=== PATIENT | male | born 1990 | race Hispanic/Latino ===

== ENCOUNTER 2024-12-31 07:24 | Emergency (ER) | payer SELFPAY ==
[~2024-12-31] VITALS: Ht 170.2 cm; Wt 89.8 kg
[2024-12-31 07:54] LABS: APPEARANCE,URINE CLOUDY (CLEAR); BILIRUBIN,URINE NEGATIVE (NEGATIVE); COLOR,URINE YELLOW (YELLOW); GLUCOSE, URINE (UA) NEGATIVE (NEGATIVE); KETONES,URINE NEGATIVE (NEGATIVE); LEUKOCYTE ESTERASE ,URINE NEGATIVE Leu/uL (NEGATIVE); NITRATE,URINE NEGATIVE (NEGATIVE); OCCULT BLOOD,URINE NEGATIVE (NEGATIVE); PROTEIN,URINE 10 mg/dL (NEGATIVE)
[2024-12-31 07:55] LABS: ADD UA MICROSCOPIC YES
--- NOTE | 2024-12-31 08:01 | ERN ---
General Chief Complaint: Flank Pain Stated Complaint: LEFT FLANK PAIN Time Seen by MD: 07:28 History of Present Illness Initial Comments 34-year-old male, denies medical conditions, presents for left lower back pain, body aches, mild dysuria. Patient reports about 36 hours ago he developed fever. He had a bit of a sore throat and body aches. He reports lower back pain now. He reports some mild dysuria. No vomiting. No hematuria. He went to a PCP yesterday and received I antibiotic injection and a prescription for azithromycin. Denies medical or surgical history. Neurovascularly intact. Allergies: Coded Allergies: No Known Drug Allergies (Unverified Allergy, Unknown, 12/31/24) Past Medical History Past Medical History: No Pertinent History Past Surgical History: Appendectomy ROS Dictation CONSTITUTIONAL: No chills, no fever, no weakness, no diaphoresis, no malaise. HEAD/FACE: No signs of trauma. EENT: No eye pain, no blurred vision, no tearing, no double vision, no ear pain, no ear discharge, no nose pain, no nasal congestion, no throat pain, no throat swelling, no mouth pain. RESPIRATORY: No cough, no orthopnea, no SOB, no stridor, no wheezing. CARDIOVASCULAR: No chest pain, no edema, no palpitations, no syncope. GASTROINTESTINAL/ABDOMINAL: No abdominal pain, no constipation, no diarrhea, no nausea, no vomiting. GENITOURINARY: No abnormal discharge, no dysuria, no frequent urination, no hematuria. No complaints of pain in the genitals. MUSCULOSKELETAL: Left lower back pain/left flank pain INTEGUMENTARY: No change in color, no change in hair/nails, no dryness, no lesion, no lumps, no rash. NEUROLOGICAL/PSYCH: No anxiety, not depressed, no emotional problem, no headache, no numbness, no pre-existing deficit, no history of seizures, no tremors, no weakness. HEMATOLOGIC/LYMPHATIC: Not anemic, no history of blood clots, no apparent bleeding, no bruising, glands not swollen. All Systems Negative, Except as Noted. Physical Exam Physical Exam Dictation VITAL SIGNS: Reviewed. GENERAL APPEARANCE: Alert, oriented x3, no acute distress HEAD AND FACE: Non-traumatic. EYES: PERRL, pink conjunctivas, eyelid no trauma, anterior chamber clear. EARS: Pinnas intact and no signs of trauma or erythema. Ear canals clear and no discharge. TMs no erythema. NOSE: No discharge, no bleeding. OROPHARYNX: Mouth normal, teeth no caries, tongue pink. Pharynx clear, no erythema. Tonsils no exudates, no abscesses noted. Mucous membrane moist. NECK: Supple, non-tender, no thyromegaly, no masses, no JVD, no bruits. BREAST: Deferred. CHEST: No tenderness, no crepitus, no paradoxical movement, no retractions. LUNGS: Clear, well-ventilated, symmetric, no rales, no wheezing, no rhonchi, no stridor, good breath sounds bilaterally. HEART: Regular rate, regular rhythm, no murmur, no gallops. VASCULAR: No peripheral edema. ABDOMEN: Soft, positive bowel sounds, nondistended, no guarding, nontender, no rebound, no masses no hepatomegaly, no splenomegaly, no Adame's sign, no hernias. RECTAL: Deferred. GENITAL: Deferred. NEUROLOGICAL: Normal speech, gross motor function intact, gross sensory function intact. MUSCULOSKELETAL: Neck nontender, full range of motion, back nontender, full range of motion. EXTREMITIES: Nontender, full range of motion. SKIN: Color pink, dry, no turgor, no rash, no lacerations, no abrasions, no contusions. LYMPHATICS: Deferred. Results Laboratory and Microbiology Lab and Micro Result Laboratory Tests Test 12/31/24 07:35 12/31/24 08:00 Urine Color YELLOW (YELLOW) Urine Appearance CLOUDY (CLEAR) H Urine pH 7.0 (5.0-8.0) Urine Specific Deweese 1.027 (1.001-1.031) Urine Protein 10 mg/dL (NEGATIVE) H Urine Glucose (UA) NEGATIVE mg/dL (NEGATIVE) Urine Ketones NEGATIVE mg/dL (NEGATIVE) Urine Occult Blood NEGATIVE (NEGATIVE) Urine Nitrate NEGATIVE (NEGATIVE) Urine Bilirubin NEGATIVE mg/dL (NEGATIVE) Urine Urobilinogen 4.0 mg/dL (0.2-1.0) H Urine Leukocyte Esterase NEGATIVE Gilda/uL Urine RBC 2-5 /HPF (0-1) H Urine WBC 0-1 /HPF (0-1) Urine Amorphous Crystals (Auto) RARE /LPF (None Seen) Urine Bacteria RARE /HPF (None Seen) White Blood Count 8.1 K/uL (4.8-10.8) Red Blood Count 5.59 MIL/uL (4.50-6.20) Hemoglobin 17.6 g/dL (14.0-18.0) Hematocrit 50.7 % (42-54) Mean Corpuscular Volume 90.7 fL (79-99) Mean Corpuscular Hemoglobin 31.5 pg (27.0-33.0) Mean Corpuscular Hemoglobin Concent 34.7 g/dL (32.0-36.0) Red Cell Distribution Width 12.1 % (11.0-15.5) Platelet Count 253 K/uL (130-400) Mean Platelet Volume 8.7 fL (7.5-10.5) Immature Granulocyte % (Auto) 0.4 % (0-1) Neutrophils (%) (Auto) 60.9 % (40.0-77.0) Lymphocytes (%) (Auto) 20.8 % (21.0-51.0) L Monocytes (%) (Auto) 16.7 % (3.0-13.0) H Eosinophils (%) (Auto) 0.5 % (0.0-8.0) Basophils (%) (Auto) 0.7 % (0.0-5.0) Neutrophils # (Auto) 5.0 K/uL (1.8-7.7) Lymphocytes # (Auto) 1.7 K/uL (1.0-4.8) Monocytes # (Auto) 1.4 K/uL (0.1-1.0) H Eosinophils # (Auto) 0.04 K/uL (0.00-0.70) Basophils # (Auto) 0.06 K/uL (0.00-0.20) Absolute Immature Granulocyte (auto 0.03 K/uL (0-1) Nucleated Red Blood Cells 0.0 % (0.0-0.19) White Cell Morphology Comment See comments Sodium Level 137 mmol/L (136-145) Potassium Level 4.0 mmol/L (3.5-5.1) Chloride Level 103 mmol/L (101-111) Carbon Dioxide Level 30 mmol/L (21-32) Blood Urea Nitrogen 15 mg/dL (7-18) Creatinine 1.0 mg/dL (0.5-1.3) Glomerular Filtration Rate Calc 101 mL/min (>90) Random Glucose 99 mg/dL (70-105) Total Calcium 8.5 mg/dL (8.5-10.1) MDM CC: Flank pain Historian: Patient Comorbidities: Denies Vital signs: Mild tachycardia heart rate 103 otherwise unremarkable. Differential diagnosis: Kidney stone, UTI, viral illness, other. Labs (independently ordered and interpreted by me ): No leukocytosis, no anemia. CBC is normal. BMP normal. Urinalysis shows 2-[address] scan of the abdomen and pelvis without contrast ( independently interpreted by me): No acute kidney stones or major abnormalities. No surgical pathology. Treatment in the ER: 1 L normal saline, 15 mg IV Toradol. Re-evaluation. Patient reports improvement of symptoms. I have very low suspicion for any life threats. There was no signs of infection currently. No signs of kidney stones. He was neurovascularly intact and no signs of significant low back pain. He has no midline tenderness and no motor dysfunction. Has a generalized body aches, suspect he may have a viral syndrome. He is currently taking antibiotics already prescribed by his outpatient physician. We will recommend he continues with this and follows up as needed. We will recommend OTC medications for pain and discomfort. ED Course Orders Procedure Category Date Status Time Urinalysis Profile LAB 12/31/24 Complete 07:30 Cbc With Differential LAB 12/31/24 Complete 07:30 Basic Metabolic Panel LAB 12/31/24 Complete 07:30 Ketorolac PHA 12/31/24 Complete Tromethamine 15mg/Ml 08:00 0.9%Nacl 1000ml (Ns PHA 12/31/24 Complete 1000ml) 08:00 Ct Abdomen/Pelvis W/O CT 12/31/24 Resulted Contrast 07:55 Current Medications Medications (Trade) Dose Ordered Sig/Norberto Route PRN Reason Start Time Stop Time Status Last Admin Dose Admin Ketorolac Tromethamine (toRADol) 15 mg ONCE ONCE IV 12/31/24 08:00 12/31/24 08:01 DC 12/31/24 08:12 Sodium Chloride 1,000 ml @ 0 mls/hr ONCE ONCE IV 12/31/24 08:00 12/31/24 08:01 DC 12/31/24 08:11 Vital Signs Date Time Temp Pulse Resp B/P (MAP) Pulse Ox O2 Delivery O2 Flow Rate FiO2 12/31/24 07:25 97.9 103 18 144/89 98 Room Air DX & DISP Disposition: Discharge Departure Impression: Primary Impression: Lower back pain Additional Impression: Body aches Condition: Stable Additional Instructions: There are no dangerous findings on your workup here today. You likely have a viral illness. Your lab work (CBC, BMP) is unremarkable. The CT scan of your abdomen and pelvis without contrast does not show any dangerous findings. There are no signs of kidney stones or major abnormalities. Continue taking the antibiotics that prescribed by her outpatient provider. For pain or discomfort, alternate 1000 mg of Tylenol and 800 mg of ibuprofen every 4 hours. These medications are [id number]. Please follow up with your primary doctor in 48 hours if you continue with symptoms. Referrals: SELF,REFERRAL (PCP) MADDISON ANTHONY DO Dec 31, 2024 08:01
[2024-12-31 08:04] LABS: BACTERIA,URINE RARE /HPF (None Seen); MUCUS,URINE RARE LPF (None Seen); WBC,URINE 0-1 /HPF (0-1)
[2024-12-31 08:10] LABS: BASOPHILS # (AUTO) 0.06 K/uL (0.00-0.20); BASOPHILS % (AUTO) 0.7 % (0.0-5.0); EOSINOPHILS # (AUTO) 0.04 K/uL (0.00-0.70); EOSINOPHILS % (AUTO) 0.5 % (0.0-8.0); HEMATOCRIT 50.7 % (42-54); IMMATURE GRANULOCYTE ABSOLUTE 0.03 K/uL (0-1); LYMPHOCYTES # (AUTO) 1.7 K/uL (1.0-4.8); LYMPHOCYTES % (AUTO) 20.8 % (21.0-51.0); MEAN CORPUSCULAR HEMOGLOBIN 31.5 pg (27.0-33.0); MEAN CORPUSCULAR HGB CONC 34.7 g/dL (32.0-36.0); MEAN CORPUSCULAR VOLUME 90.7 fL (79-99); MONOCYTES # (AUTO) 1.4 K/uL (0.1-1.0); MONOCYTES % (AUTO) 16.7 % (3.0-13.0); NEUTROPHILS % (AUTO) 60.9 % (40.0-77.0); PLATELET COUNT (AUTO) 253 K/uL (130-400); RED BLOOD CELL COUNT(AUTO) 5.59 MIL/uL (4.50-6.20); RED CELL DISTRIBUTION WIDTH 12.1 % (11.0-15.5); WHITE BLOOD COUNT (AUTO) 8.1 K/uL (4.8-10.8)
[2024-12-31] MEDS: 0.9%NACL 1000ML 1,000 ML IV ONE (08:11)
[2024-12-31] MEDS: ketOROlac 15MG/ML VIAL (15MG/ML) IV ONE (08:12)
--- NOTE | 2024-12-31 08:42 | HMCIMG ---
CT ABDOMEN/PELVIS W/O CONTRAST HISTORY: Bilateral flank pain COMPARISON: None TECHNIQUE: Multiple sequential axial images of the abdomen and pelvis were obtained from the dome of the diaphragm through symphysis pubis. Patient was not given contrast through intravenous route. Oral contrast was not given. FINDINGS: No pleural effusion is seen bilaterally. There is no evidence of parenchymal disease or pulmonary nodule of the visualized lower lungs. Degenerative changes of the thoracolumbar spine are present. The heart is not enlarged. Gallbladder is distended. The liver, spleen, adrenal glands and pancreas are unremarkable. There is no evidence of hydronephrosis bilaterally. No evidence of renal stone is seen. Fecal material is seen in the colon. There are normal size retroperitoneal and mesenteric lymph nodes. No ascites is seen. Atherosclerotic changes are present. Pelvic sidewalls are symmetric bilaterally. Bladder is poorly distended. IMPRESSION: 1. No acute findings. CT was performed with one or more following dose reduction techniques: automated exposure control, adjustment of the mA and kv according to patient's size, or use of a iterative reconstruction technique.
[2024-12-31 09:25] VITALS: BP 126/89; PULSE 84; RESP 16; TEMP 98.4; O2SAT 100
== END 2024-12-31 09:26 | disposition home or self-care (01) ==
LOC: EDH 07:24
DX: M54.50 Low back pain, unspecified (principal); Z90.49 Acquired absence of other specified parts of digestive tract
CPT/HCPCS: 99285; 74176; 96374; 96361; 80048; 85025; 81001; 36415; J1885; J7030